=== PATIENT | female | born 1940 | race Caucasian/White ===

== ENCOUNTER → 2016-12-09 | Outpatient (CLI) | payer MEDICARE ==
[~2016-12-09] MED LIST: ATIVAN 1MG T1 MG/TAB PO; COZAAR 50MG50 MG/TAB PO; EFFEXOR 75M75 MG/TAB PO; LAMICTAL 100MG100 MG PO
== END ==
LOC: BHSO 10:55
DX: F31.73 Bipolar disorder, in partial remission, most recent episode manic (principal)
CPT/HCPCS: 90791-AI

== ENCOUNTER → 2017-01-21 | Outpatient (CLI) | payer MEDICARE | LOC: BHSO 14:47 | DX: F31.74 Bipolar disorder, in full remission, most recent episode manic (principal) ==

== ENCOUNTER → 2017-03-17 | Outpatient (CLI) | payer MEDICARE | LOC: BHSO 10:55 | DX: F31.73 Bipolar disorder, in partial remission, most recent episode manic (principal) ==

== ENCOUNTER 2017-03-20 08:02 | Day surgery (SDC) | payer MEDICARE ==
[~2017-03-20] VITALS: Ht 167.6 cm; Wt 76.4 kg
[2017-03-20] VITALS (10 sets, daily range): BP systolic 125–156; BP diastolic 55–101; PULSE 55–63; TEMP 97.9
[2017-03-20 08:40] LABS: HEMATOCRIT 38.6 % (37.0-47.0); HEMOGLOBIN 12.7 g/dl (12.5-16.0); MEAN CELL VOLUME 94 fl (80.0-100.0); MEAN CORPUSCULAR HEMOGLOBIN 31 pg (27.0-31.0); MEAN CORPUSCULAR HGB CONC 33 g/dl (33.0-37.0); MEAN PLATELET VOLUME 10.5 fl (7.4-10.4); PLATELET COUNT 246 K/mm3 (130-400); RED BLOOD COUNT 4.13 M/mm3 (4.10-5.30); REDCELL DISTRIBUTION WIDTH-CV 12.1 % (11.5-14.5); WHITE BLOOD COUNT 6.9 K/mm3 (4.8-10.8)
[2017-03-20 08:41] LABS: PROTHROMBIN TIME 11.4 SECONDS (9.7-12.8)
[2017-03-20 08:47] LABS: CALCIUM 9.8 mg/dL (8.4-10.2); CREATININE, serum 0.83 mg/dL (0.52-1.25); POTASSIUM 4.1 mmol/L (3.4-5.0)
[2017-03-20] MEDS ORDERED: COZAAR 50MG50 MG/TAB PO (09:30)
[2017-03-20] MEDS ORDERED: ATIVAN 1MG T1 MG/TAB PO (09:31)
[2017-03-20] MEDS ORDERED: LAMICTAL 100MG100 MG PO (09:31)
[2017-03-20] MEDS ORDERED: EFFEXOR 75M75 MG/TAB PO (09:32)
== END 2017-03-20 15:16 | disposition home or self-care (01) ==
LOC: COL.CAR 08:02
PROVIDERS: Internal Medicine Interventional Cardiology
DX: I25.10 Atherosclerotic heart disease of native coronary artery without angina pectoris (principal); R94.39 Abnormal result of other cardiovascular function study; J44.9 Chronic obstructive pulmonary disease, unspecified; I83.93 Asymptomatic varicose veins of bilateral lower extremities; Z82.49 Family history of ischemic heart disease and other diseases of the circulatory system; Z82.3 Family history of stroke; Z83.3 Family history of diabetes mellitus
CPT/HCPCS: C1760; C1894; J2250; J3010; Q9967

== ENCOUNTER → 2017-05-15 | Outpatient (CLI) | payer MEDICARE | LOC: BHSO 10:48 | DX: F33.1 Major depressive disorder, recurrent, moderate (principal) ==

== ENCOUNTER → 2017-08-18 | Outpatient (CLI) | payer MEDICARE | LOC: BHSO 10:56 | DX: F41.1 Generalized anxiety disorder (principal) | CPT/HCPCS: G0463 ==

== ENCOUNTER 2021-12-30 18:41 | Emergency (ER) | payer MEDICARE ==
[~2021-12-30] VITALS: Ht 167.6 cm; Wt 79.5 kg
[2021-12-30 18:51] VITALS: TEMP 98.6
[2021-12-30 19:44] LABS: ANION GAP 12 mmol/L (7-16); BLOOD UREA NITROGEN 15 mg/dL (10-20); CALCIUM 9.9 mg/dL (8.4-10.2); CARBON DIOXIDE 22 mmol/L (23-31); CHLORIDE 108 mmol/L (98-107); GLUCOSE 106 mg/dL (70-99); POTASSIUM 4.1 mmol/L (3.5-4.5); SODIUM 142 mmol/L (136-145)
[2021-12-30 19:52] LABS: TROPONIN-I < 0.010 ng/mL (0.00-0.033)
[2021-12-30 20:02] LABS: BASO # 0.1 K/mm3 (0.0-0.2); BASO % 0.5 % (0.0-2.0); EOS # 0.5 K/mm3 (0.0-0.7); EOS % 4.9 % (0.0-4.0); GRAN # 4.7 K/mm3 (1.4-6.5); HEMATOCRIT 45.8 % (37.0-47.0); LYMPH # 4.6 K/mm3 (1.2-3.4); LYMPH % 42.3 % (20.0-51.0); MEAN CELL VOLUME 92 fl (80.0-100.0); MEAN CORPUSCULAR HEMOGLOBIN 30 pg (27-31); MEAN CORPUSCULAR HGB CONC 33 g/dl (33.0-37.0); MEAN PLATELET VOLUME 10.3 fl (7.4-10.4); MONO % 8.9 % (1.7-9.3); PLATELET COUNT 304 K/mm3 (130-400); RED BLOOD COUNT 4.98 M/mm3 (4.10-5.30); REDCELL DISTRIBUTION WIDTH-CV 12.4 % (11.5-14.5)
[2021-12-30 20:53] LABS: ERYTHROCYTE SEDIMENTATION RATE 15 mm/hr (0-30)
[2021-12-30] MEDS ORDERED: NASONEX SPRAY17 GM NS (21:05)
[2021-12-30 21:15] VITALS: BP 147/79; PULSE 67
== END 2021-12-30 21:30 | disposition home or self-care (01) ==
LOC: COL.ER 18:41
PROVIDERS: Emergency Medicine
DX: J32.9 Chronic sinusitis, unspecified (principal)
CPT/HCPCS: J2765; J7120

== ENCOUNTER → 2023-10-09 | Outpatient (CLI) | payer MEDICARE ==
[~2023-10-09] MED LIST changes: +NASONEX SPRAY17 GM NS; +PERCOCET 325 MG1 TA2 PO
== END ==
LOC: MC.RAD 10:17
DX: Z12.31 Encounter for screening mammogram for malignant neoplasm of breast (principal)